=== PATIENT | female | born 1960 | race Caucasian/White ===

== ENCOUNTER 2018-04-30 21:10 | Emergency (ER) | payer OTHER ==
[2018-04-30 21:23] VITALS: Ht 157.5 cm
[2018-05-01 00:44] VITALS: BP 129/77
== END 2018-05-01 00:44 | disposition home or self-care (01) ==
LOC: ED 21:10
DX: G43.909 Migraine, unspecified, not intractable, without status migrainosus (principal); F32.9 Major depressive disorder, single episode, unspecified; Z91.041 Radiographic dye allergy status
CPT/HCPCS: J1100; J1885; J2270; J2765; J7030

== ENCOUNTER 2018-05-23 20:03 | Emergency (ER) | payer OTHER ==
[~2018-05-23] VITALS: Ht 157.5 cm; Wt 66.2 kg
[2018-05-23 20:15] VITALS: Ht 157.5 cm; Wt 66.2 kg
[2018-05-23 21:11] VITALS: BP 148/92
[2018-05-23 22:09] LABS: UA SPECIFIC GRAVITY <=1.005 (1.005-1.035); microscopic required? YES; urine erythrocyte TRACE (NEGATIVE)
== END 2018-05-23 21:11 | disposition home or self-care (01) ==
LOC: ED 20:03
PROVIDERS: Emergency Medicine
DX: N39.0 Urinary tract infection, site not specified (principal); G43.909 Migraine, unspecified, not intractable, without status migrainosus; F32.9 Major depressive disorder, single episode, unspecified; Z88.8 Allergy status to other drugs, medicaments and biological substances
CPT/HCPCS: J1885

== ENCOUNTER 2018-07-03 12:16 | Emergency (ER) | payer OTHER ==
[~2018-07-03] VITALS: Ht 157.5 cm; Wt 64.0 kg
[2018-07-03 12:30] VITALS: Ht 157.5 cm; Wt 64.0 kg
[2018-07-03 13:12] LABS: BASOPHIL % 0.2 % (0-2); PLATELET COUNT 272 x10^3mcL (130-400); RED CELL DISTRIBUTION WIDTH 13.2 % (11.5-14.5)
[2018-07-03 13:22] LABS: CALCIUM 8.6 mg/dL (8.5-10.1); CARBON DIOXIDE 26.7 mmol/L (21-32); CHLORIDE SERUM 104 mmol/L (98-107); CREATININE SERUM 0.7 mg/dL (0.6-1.0); GFR1 > 60 mL/min; GLUCOSE SERUM 163 mg/dL (74-106); POTASSIUM SERUM 3.4 mmol/L (3.5-5.1); SODIUM SERUM 142 mmol/L (136-145)
[2018-07-03 13:24] LABS: microscopic required? YES; urine erythrocyte 1+ (NEGATIVE)
[2018-07-03 13:27] LABS: ALKALINE PHOSPHATASE 86 U/L (46-116); ALT/SGPT 27 U/L (14-59); AST/SGOT 15 U/L (15-37); BILIRUBIN TOTAL 0.33 mg/dL (0.20-1.00); LIPASE 104 IU/L (73-393); TOTAL PROTEIN, SERUM 8.2 g/dL (6.4-8.2)
[2018-07-03 15:27] VITALS: BP 119/78
== END 2018-07-03 15:27 | disposition home or self-care (01) ==
LOC: ED 12:16
PROVIDERS: Emergency Medicine
DX: N39.0 Urinary tract infection, site not specified (principal); G43.909 Migraine, unspecified, not intractable, without status migrainosus; F32.9 Major depressive disorder, single episode, unspecified; Z88.8 Allergy status to other drugs, medicaments and biological substances
CPT/HCPCS: J1885; J2405; J7030

== ENCOUNTER 2018-08-21 18:58 | Emergency (ER) | payer OTHER ==
[~2018-08-21] VITALS: Ht 157.5 cm; Wt 64.4 kg
== END 2018-08-21 20:08 | disposition home or self-care (01) ==
LOC: ED 18:58
DX: M25.561 Pain in right knee (principal); F32.9 Major depressive disorder, single episode, unspecified; G43.909 Migraine, unspecified, not intractable, without status migrainosus; Z91.041 Radiographic dye allergy status
CPT/HCPCS: Q0092

== ENCOUNTER 2018-11-30 13:24 | Emergency (ER) | payer OTHER ==
[~2018-11-30] VITALS: Ht 157.5 cm; Wt 64.0 kg
[2018-11-30 13:27] VITALS: Ht 157.5 cm; Wt 64.0 kg
[2018-11-30 17:13] VITALS: BP 132/78
== END 2018-11-30 17:13 | disposition home or self-care (01) ==
LOC: ED 13:24
DX: S29.012A Strain of muscle and tendon of back wall of thorax, initial encounter (principal); F32.9 Major depressive disorder, single episode, unspecified; G43.909 Migraine, unspecified, not intractable, without status migrainosus; Z88.8 Allergy status to other drugs, medicaments and biological substances; X50.1XXA Overexertion from prolonged static or awkward postures, initial encounter; Y93.89 Activity, other specified; Y92.89 Other specified places as the place of occurrence of the external cause; Y99.8 Other external cause status
CPT/HCPCS: J1885

== ENCOUNTER 2019-01-28 15:20 | Emergency (ER) | payer OTHER ==
[~2019-01-28] VITALS: Ht 157.5 cm; Wt 65.3 kg
[2019-01-28 15:33] VITALS: Ht 157.5 cm; Wt 65.3 kg
[2019-01-28 17:10] VITALS: BP 128/71
== END 2019-01-28 17:16 | disposition home or self-care (01) ==
LOC: ED 15:20
DX: G43.909 Migraine, unspecified, not intractable, without status migrainosus (principal); F32.9 Major depressive disorder, single episode, unspecified
CPT/HCPCS: J1885; J2765; J7030

== ENCOUNTER 2020-01-15 11:33 | Emergency (ER) | payer OTHER ==
[~2020-01-15] VITALS: Ht 157.5 cm; Wt 65.3 kg
[2020-01-15 11:42] VITALS: Ht 157.5 cm; Wt 65.3 kg
[2020-01-15 12:18] VITALS: BP 132/79
== END 2020-01-15 12:18 | disposition home or self-care (01) ==
LOC: ED 11:33
DX: N39.0 Urinary tract infection, site not specified (principal); G43.909 Migraine, unspecified, not intractable, without status migrainosus